=== PATIENT | female | born 1980 | race Caucasian/White ===

== ENCOUNTER 2019-08-03 09:54 | Day surgery (SDC) | payer OTHER ==
[~2019-08-03] VITALS: Ht 165.1 cm; Wt 59.4 kg
[2019-08-03 10:52] VITALS: Ht 165.1 cm; Wt 59.4 kg
[2019-08-03 12:04] VITALS: BP 107/63; PULSE 71; RESP 18
[2019-08-03] MEDS ORDERED: MIDAZOLAM 1 MG/ML 2 ML INJ ONE ×4 (12:58→12:59)
[2019-08-03] MEDS ORDERED: FENTAnyl 50 MCG/ML VIAL ONE ×2 (12:58→17:21)
[2019-08-03 13:21] VITALS: BP 95/51; PULSE 64; RESP 20
== END 2019-08-03 17:49 | disposition home or self-care (01) ==
LOC: GIL 09:54
PROVIDERS: ATTEND Internal Medicine Gastroenterology
DX: K64.8 Other hemorrhoids (principal); K44.9 Diaphragmatic hernia without obstruction or gangrene; K21.9 Gastro-esophageal reflux disease without esophagitis
CPT/HCPCS: 43239; 45380; 88305; 88312; J2250; J3010